=== PATIENT | female | born 1980 | race Caucasian/White ===

== ENCOUNTER 2017-11-10 18:48 | Emergency (ER) | payer MEDICAID ==
[~2017-11-10] VITALS: Ht 157.5 cm; Wt 61.0 kg
[2017-11-10 18:52] VITALS: BP 110/78
[2017-11-10] MEDS ORDERED: BUPIVAcaine/PF 2.5 mg/ml (0.25%) 30ml vial IJ ONE (19:30)
[2017-11-10] MEDS ORDERED: acetaminophen 325mg tablet PO ONE (19:30)
== END 2017-11-10 21:25 | disposition home or self-care (01) ==
LOC: ER 18:50
DX: S61.211A Laceration without foreign body of left index finger without damage to nail, initial encounter (principal); F17.200 Nicotine dependence, unspecified, uncomplicated; Z88.6 Allergy status to analgesic agent; Z88.8 Allergy status to other drugs, medicaments and biological substances; W26.8XXA Contact with other sharp object(s), not elsewhere classified, initial encounter; Y93.89 Activity, other specified; Y92.89 Other specified places as the place of occurrence of the external cause; Y99.8 Other external cause status
CPT/HCPCS: 12002; 99283; A6255; A6449; J3490

== ENCOUNTER 2020-12-01 11:06 | Emergency (ER) | payer MEDICAID, OTHER ==
[~2020-12-01] VITALS: Ht 160 cm; Wt 55.0 kg
[2020-12-01 11:19] VITALS: BP 113/88
[2020-12-01] MEDS ORDERED: METH4TAB81 PO (11:29)
[2020-12-01] MEDS ORDERED: ketorolac trometh. 30mg/ml inj. IM ONE (11:40)
[2020-12-01] MEDS ORDERED: triamcinolone acetonide 40mg/ml inj IM ONE (12:30)
[2020-12-01] MEDS ORDERED: LIDOcaine 1% W/epiNEPHrine 1:200,000 10ml vial IJ ONE (12:40)
== END 2020-12-01 13:15 | disposition home or self-care (01) ==
LOC: ER 11:07
DX: S39.012A Strain of muscle, fascia and tendon of lower back, initial encounter (principal); F41.9 Anxiety disorder, unspecified; F32.9 Major depressive disorder, single episode, unspecified; Z72.89 Other problems related to lifestyle; Z88.8 Allergy status to other drugs, medicaments and biological substances; Z88.6 Allergy status to analgesic agent; Z79.899 Other long term (current) drug therapy; X50.1XXA Overexertion from prolonged static or awkward postures, initial encounter; Y93.89 Activity, other specified; Y92.89 Other specified places as the place of occurrence of the external cause; Y99.8 Other external cause status
CPT/HCPCS: 20552; 96372; 99284; J1885